=== PATIENT | male | born 1955 | race Caucasian/White ===

== ENCOUNTER 2016-05-15 06:51 | Inpatient (IN) | payer MEDICAID ==
[2016-05-14 10:18] LABS: % IMMATURE GRANULYOCYTES 0.2 % (0.0-1.1); ABSOLUTE IMMATURE GRANULOCYTES 0.01 10^3/uL (0.00-0.10); ADD DIFF? NO; ADD MORPH? NO; ADD SCAN? NO; ATYPICAL LYMPHOCYTE FLAG 20 (0-99); FRAGMENT RBC FLAG 0 (0-99); HEMATOCRIT 41.3 % (40.0-51.0); HEMOGLOBIN 13.8 g/dL (13.7-17.5); LEFT SHIFT FLG 0 (0-99); LIPEMIA HEMOLYSIS FLAG 80 (0-99); MEAN CELL HEMOGLOBIN 31.4 pg (27.9-34.1); MEAN CELL HEMOGLOBIN CONCENTR. 33.4 g/dL (32.4-36.7); MEAN CELL VOLUME 93.9 fL (81.5-99.8); MEAN PLATELET VOLUME 10.2 fL (8.7-11.7); PLATELET CLUMPS FLAG 0 (0-99); PLATELET COUNT 204 10^3/uL (150-400); RED CELL DISTRIBUTION WIDTH 14.2 % (11.5-15.2)
[2016-05-14 10:30] LABS: PROTIME(PATIENT) 13.1 SEC (12.0-15.0)
[2016-05-14 10:31] LABS: APTT 30.2 SEC (23.0-38.0)
[2016-05-14 10:59] LABS: HEMOGLOBIN A1C 5.5 % (4.0-6.0)
--- NOTE | 2016-05-14 17:45 | DX ---
PA and Lateral Chest May 14, 2016 Clinical Indications: Preoperative evaluation in a 61-year-old male. Comparison: Comparison is made to cardiac MRI study of April 17, 2016. Findings: There is stable prominent elevation of the left hemidiaphragm. Surgical clips are seen pr ojecting over the upper mediastinum and superior aspect of the heart anteriorly. The heart is displa jadon towards the left and may be mildly enlarged. Pulmonary vascularity is normal. Minimal scarring or atelectasis is seen at the left lung base. There is a suture line along the inferior aspect of th e left lung. IMPRESSION: Postoperative changes on the left, with associated elevation of the left hemidiaphragm, with no acute cardiopulmonary abnormality identified. Specifically, no radiographic contraindication to surgery is appreciated.
[~2016-05-15 06:51] MED LIST: ADENOSINE 6 MG/2 ML VIAL ONE; ALBUMIN 5% 250 ML BOTTLE IV ONE; AMINOCAPROIC ACID 5 GM/20 ML VIAL ONE; AMIODARONE HCL 150 MG/3 ML VIAL ONE; CALCIUM CHLORIDE 1 GM/10 ML INJ ONE; DOPamine/DEXTROSE/250 ML BAG IV ONE; HEPARIN 10,000 UNIT/10 ML MDV ONE; LIDOCAINE 2% 100 MG/5 ML SYR IVP ONE; MAGNESIUM SULFATE 1 GM/2 ML VIAL ONE; MILRINONE/DEXTROSE/100 ML BAG IV ONE; NA BICARBONATE 50 MEQ/50 ML VIAL ONE; POTASSIUM Cl (KCl) 20 MEQ/50 ML BAG IV ONE; PROTAMINE SULFATE 50 MG/5 ML VIAL IVP ONE; ceFAZolin 1 GM VIAL ONE; ceFAZolin 2 GM in D5W 100 ML IV ONE; methylPREDNISolone SOD SUCC 1 GM/8 ML VIAL ONE; niCARdipine/NACL/200 ML BAG IV ONE
[2016-05-15] MEDS ORDERED: NOREPINEPHRINE BITARTRATE 16 MG in NS 250 ML IV ONE (07:00)
[2016-05-15] MEDS ORDERED: AMINOCAPROIC ACID 5 GM/20 ML VIAL IV ONE (07:00)
[2016-05-15] MEDS ORDERED: SODIUM BICARBONATE 20 MEQ, LIDOCAINE 1% 10 ML in NORMOSOL-R 1,000 ML MISC ONE (07:00)
[2016-05-15] MEDS ORDERED: NS 1,000 ML IV ONE (07:00)
[2016-05-15] MEDS ORDERED: MANNITOL 25% 12.5 GM/50 ML VIAL IV ONE (07:00)
[2016-05-15] MEDS ORDERED: INSULIN REGULAR HUMAN 100 UNIT in NS 100 ML IV ONE (07:00)
[2016-05-15] MEDS ORDERED: PHENYLEPHRINE HCL 50 MG in NS 250 ML IV ONE (07:00)
[2016-05-15] MEDS ORDERED: CITRATE DEXTROSE SOLN 500 ML BAG MISC ONE (07:00)
[2016-05-15] MEDS ORDERED: ceFAZolin 2 GM/DEXTROSE 100 ML IV ONE (07:00)
[2016-05-15] MEDS ORDERED: VERAPAMIL 5 MG, NITROGLYCERIN 2.5 MG, HEPARIN 500 UNIT, SODIUM BICARBONATE 0.2 MEQ in L... MISC ONE (07:00)
[2016-05-15] MEDS ORDERED: LIDOCAINE 1% 5 ML SDV ID PRN ×2 (07:00→08:05)
[2016-05-15] MEDS ORDERED: LIDOCAINE 1% 5 ML SDV ONE (07:20)
--- NOTE | 2016-05-15 07:44 | PDGENHP ---
History and Physical - Chief Complaint /MR/CAD - History of Present Illness 61M with known , MR, CAD here for elective AVR/MVR/CABG. Pt states his health hasn't changed since his last visit at [facility] on 05/06/16. History Information - Allergies/Home Medication List Allergies/Adverse Reactions: No Known Allergies Allergy (Verified 05/13/16 13:44) Home Medications: Ascorbic Acid [Vitamin C 500 mg (*)] 500 mg PO DAILY 02/05/16 [Last Taken 08:00] Glucosamine HCl/Chondr Rudd A Na [Glucosamine-Chondroitin Tablet] 3 tab PO DAILY 02/05/16 [Last Taken 03/03/16 08:00] Multivitamins [Multivitamin (*)] 1 each PO DAILY 02/05/16 [Last Taken 03/03/16 08:00] Sumatriptan Succinate [Imitrex] 100 mg PO PRN PRN 02/05/16 [Last Taken Unknown] Venlafaxine Xr [Effexor Xr] 150 mg PO DAILY 02/05/16 [Last Taken 03/03/16 08:00] traZODone [traZODone 150MG (*)] 150 mg PO HS 02/05/16 [Last Taken 03/03/16 21:00 ] [place]-3 Fatty Acids [Fish Oil 1000 mg (*)] 1,000 mg PO DAILY 03/04/16 [Last Taken 03/03/16 08:00] Herbals/Supplements -Info Only 1 ea PO DAILY 05/14/16 [Last Taken Unknown] Past Medical History: , MR, Left neck pain, sleep apnea, depression, headaches - Past Medical History coronary artery disease, CHF, hypertension, hyperlipidemia, myocardial infarction - Social History Smoking Status: Never smoked Lab Data & Imaging Review 05/14/16 09:22 WBC 4.09 10^3/uL (3.80-9.50) 05/14/16 09:22 RBC 4.40 10^6/uL (4.40-6.38) 05/14/16 09:22 Hgb 13.8 g/dL (13.7-17.5) 05/14/16 09:22 Hct 41.3 % (40.0-51.0) 05/14/16 09:22 MCV 93.9 fL (81.5-99.8) 05/14/16 09: MCH 31.4 pg (27.9-34.1) 05/14/16 09: MCHC 33.4 g/dL (32.4-36.7) 05/14/16 09: RDW 14.2 % (11.5-15.2) 05/14/16 09:22 Plt Count 204 10^3/uL (150-400) 05/14/16 09: MPV 10.2 fL (8.7-11.7) 05/14/16 09:22 Neut % (Auto) 65.8 % (39.3-74.2) 05/14/16: Lymph % (Auto) 19.8 % (15.0-45.0) 05/14/16: [place] % (Auto) 10.5 % (4.5-13.0) 05/14/16 09: Eos % (Auto) 2.7 % (0.6-7.6) 05/14/16: Baso % (Auto) 1.0 % (0.3-1.7) 05/14/16 09: Nucleat RBC Rel Count 0.0 % (0.0-0.2) 05/14/16 09: Absolute Neuts (auto) 2.69 10^3/uL (1.70-6.50) 05/14/16 09:22 Absolute Lymphs (auto) 0.81 10^3/uL (1.00-3.00) L 05/14/16 09:22 Absolute Monos (auto) 0.43 10^3/uL (0.30-0.80) 05/14/16 09:22 Absolute Eos (auto) 0.11 10^3/uL (0.03-0.40) 05/14/16: Absolute Basos (auto) 0.04 10^3/uL (0.02-0.10) 05/14/16: Absolute Nucleated RBC 0.00 10^3/uL (0-0.01) 05/14/16 09: Immature Gran % 0.2 % (0.0-1.1) 05/14/16 09: Immature Gran # 0.01 10^3/uL (0.00-0.10) 05/14/16 09:22 PT 13.1 SEC (12.0-15.0) 05/14/16 09:22 INR 1.00 (0.83-1.16) 05/14/16 09:22 APTT 30.2 SEC (23.0-38.0) 05/14/16 09:22 Hemoglobin A1c 5.5 % (4.0-6.0) 05/14/16 09:23 Estim Average Glucose 111 mg/dL (68-126) 05/14/16 09:23 Patient ABO/Rh O NEGATIVE 05/14/16 09:22 Antibody Screen NEGATIVE 05/14/16 09:22 Assessment & Plan Assessment: Aortic stenosis with mitral and aortic insufficiency (Chronic) CAD in [place] artery (Chronic) Chronic combined systolic and diastolic CHF, NYHA class 2 (Chronic) Chronically elevated hemidiaphragm (Chronic) Nonischemic cardiomyopathy (Chronic)
[2016-05-15] MEDS ORDERED: MIDAZOLAM 2 MG/2 ML VIAL ONE ×4 (08:05→08:10)
[2016-05-15] MEDS ORDERED: LR 1,000 ML IV ONE (08:05)
[2016-05-15] MEDS ORDERED: REMIFENTANIL HCL 1 MG VIAL ONE (08:10)
[2016-05-15] MEDS ORDERED: fentaNYL 250 MCG/5 ML INJ ONE ×2 (08:10→11:40)
[2016-05-15] MEDS ORDERED: CITRATE DEXTROSE SOLN 500 ML BAG ONE (08:11)
[2016-05-15] MEDS ORDERED: DEXAMETHASONE 4 MG/ML VIAL ONE ×2 (08:11)
[2016-05-15] MEDS ORDERED: ROCURONIUM 100 MG/10 ML VIAL ONE (08:11)
[2016-05-15] MEDS ORDERED: ROCURONIUM 50 MG/5 ML VIAL ONE (08:11)
[2016-05-15] MEDS ORDERED: epHEDrine SULFATE 10 MG/ML SYR ONE ×3 (08:11→09:07)
[2016-05-15] MEDS ORDERED: PROPOFOL/EMULSION 500 MG/50 ML BOTTLE IV ONE ×2 (08:11→11:39)
[2016-05-15] MEDS ORDERED: PHENYLEPHRINE HCL 100 MCG/ML SYR ONE (08:11)
[2016-05-15] MEDS ORDERED: ONDANSETRON 4 MG/2 ML VIAL ONE (08:12)
[2016-05-15] MEDS ORDERED: LIDOCAINE 2% 100 MG/5 ML SYR IVP ONE (08:12)
[2016-05-15] MEDS ORDERED: SKIN ADHESIVE (DERMABOND) 1 EACH TP ONE (08:13)
[2016-05-15] MEDS ORDERED: VERAPAMIL 5 MG/2 ML VIAL ONE (08:13)
[2016-05-15] MEDS ORDERED: PAPAVERINE HCL 60 MG/2 ML SDV ONE (08:14)
[2016-05-15] MEDS ORDERED: LIDOCAINE HCL 160 MG/4 ML LTA KIT TP ONE (08:17)
[2016-05-15] MEDS ORDERED: GLYCOPYRROLATE 0.2 MG/1 ML VIAL ONE (09:06)
[2016-05-15] MEDS ORDERED: MILRINONE/DEXTROSE/100 ML BAG IV ONE (10:18)
[2016-05-15] MEDS ORDERED: LACTULOSE 20 GM/30 ML UDCUP PO PRN (12:38)
[2016-05-15] MEDS ORDERED: MAGNESIUM SULF 2 GM/WATER 50 ML IV ONE (12:38)
[2016-05-15] MEDS ORDERED: ACETAMINOPHEN 325 MG TAB PO PRN (12:38)
[2016-05-15] MEDS ORDERED: MAGNESIUM HYDROXIDE 30 ML UDCUP PO PRN (12:38)
[2016-05-15] MEDS ORDERED: PANTOPRAZOLE SODIUM 40 MG in NS 100 ML IV ONE (12:38)
[2016-05-15] MEDS ORDERED: BISACODYL 10 MG SUPP PR PRN (12:38)
[2016-05-15] MEDS ORDERED: D50W 25 GM/50 ML SYR IVP PRN (12:38)
[2016-05-15] MEDS ORDERED: ACETAMINOPHEN 650 MG SUPP PR PRN (12:38)
[2016-05-15] MEDS ORDERED: HYDROCODONE/APAP 5/325 TAB PO PRN (12:38)
[2016-05-15] MEDS ORDERED: METOCLOPRAMIDE 10 MG/2 ML VIAL IVP PRN (12:38)
[2016-05-15] MEDS ORDERED: ONDANSETRON DISINTEGRATING 4 MG TAB PO PRN (12:38)
[2016-05-15] MEDS ORDERED: ONDANSETRON 4 MG/2 ML VIAL IVP PRN (12:38)
[2016-05-15] MEDS ORDERED: SODIUM CL NASAL 45 ML BTL EACHNARE PRN (12:38)
[2016-05-15] MEDS ORDERED: CEPACOL LOZENGE PO PRN (12:38)
[2016-05-15] MEDS ORDERED: POLYETHYLENE GLYCOL 3350 17 GM PKT PO PRN (12:38)
[2016-05-15] MEDS ORDERED: MEPERIDINE 25 MG/ML SYR IVP PRN (12:38)
[2016-05-15] MEDS ORDERED: ALBUMIN 5% 250 ML IV PRN (12:38)
[2016-05-15] MEDS ORDERED: NS 1,000 ML IV SCH (12:45)
[2016-05-15] MEDS ORDERED: INSULIN REGULAR HUMAN 100 UNIT in NS 100 ML IV SCH (13:00)
[2016-05-15] MEDS ORDERED: MAGNESIUM SULF 2 GM/WATER 50 ML BAG IV ONE (13:03)
--- NOTE | 2016-05-15 13:09 | POSTOPPROG ---
Post Op Note Date of Operation: 05/15/16 Surgeon: Jan Malloy Deli Bakery Clerk: Fei Velázquez Anesthesiologist: Juan Anesthesia: GET(General Endotracheal) Pre-op Diagnosis: AI, MR, ASHD restrictive myopathy Procedure: AVR #21 Magna, MVR #25 Magna, reoperation, LCFA?V long w repair Inf/Abcess present in the surg proc area at time of surgery?: No EBL: 100-500 Drains: Other (2 blakes)
[2016-05-15 13:57] LABS: BASE EXCESS -7.7 mEq/L (-2.5-2.5); BICARBONATE 19 mEq/L (22-26); MEASURED OXYGEN SATURATION 99 % (92-95); PCO2 38 mmHg (34-38); PO2 217 mmHg (65-75); TCO2 20 mEq/L (23-27)
[2016-05-15 13:59] LABS: O2 CONCENTRATIION 100 % (0-100); P/F RATIO 217 RATIO; PRESSURE SUPPORT 7; SIMV YES
[2016-05-15] MEDS ORDERED: ceFAZolin 2 GM/DEXTROSE 100 ML IV SCH (14:00)
[2016-05-15] MEDS ORDERED: NA BICARBONATE 50 MEQ/50 ML VIAL ONE (14:09)
--- NOTE | 2016-05-15 14:15 | CPEKG ---
Heart Rate: 94 RR Interval: 638 P-R Interval: 176 QRSD Interval: 106 QT Interval: 388 QTC Interval: 486 P [place]: 73 QRS [place]: -37 T Wave [place]: 121 EKG Severity - ABNORMAL ECG - EKG Impression: SINUS RHYTHM EKG Impression: LVH WITH SECONDARY REPOLARIZATION ABNORMALITY EKG Impression: BORDERLINE PROLONGED QT INTERVAL Electronically Signed By: Rohit Hodges 15-May-2016 19:29:28
[2016-05-15] MEDS: POTASSIUM Cl (KCl) 50 ML IV PRN ×4 (14:38→16:51)
[2016-05-15] MEDS: fentaNYL 100 MCG/2 ML INJ IVP PRN (14:40)
[2016-05-15] MEDS: MUPIROCIN 2% 22 GM OINT NS SCH ×2 (14:44→20:40)
[2016-05-15] MEDS ORDERED: NA BICARBONATE 50 MEQ/50 ML VIAL IV ONE ×3 (15:00→17:30)
[2016-05-15] MEDS: CHLORHEXIDINE GLUCONATE 15 ML UDL PO SCH ×2 (15:00→20:34)
[2016-05-15 15:07] LABS: BASE EXCESS -7.6 mEq/L (-2.5-2.5); BICARBONATE 19 mEq/L (22-26); MEASURED OXYGEN SATURATION 97 % (92-95); PCO2 44 mmHg (34-38); PO2 96 mmHg (65-75); TCO2 21 mEq/L (23-27)
[2016-05-15 15:08] LABS: SIMV YES
[2016-05-15 15:09] LABS: O2 CONCENTRATIION 40 % (0-100); P/F RATIO 240 RATIO; PRESSURE SUPPORT 7
[2016-05-15 15:26] LABS: HEMATOCRIT 29.4 % (40.0-51.0)
[2016-05-15] MEDS: ceFAZolin 2 GM in D5W 100 ML IV SCH ×2 (15:38→21:16)
--- NOTE | 2016-05-15 16:18 | GOP ---
[f rep st] OPERATIVE REPORT DATE OF OPERATION: 05/15/2016 SURGEON: Jan Malloy DO INDUSTRIAL TRUCK DRIVER: 1. Low Velázquez PA-C, who 1st-assisted throughout the procedure. 2. Blossom Enamorado PA-C. ANESTHESIA: Guicho Martinez M.D. PREOPERATIVE DIAGNOSIS: 1. 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 2. Arteriosclerotic heart disease, status post total occlusion of the left anterior descending with apical infarct. 3. Cardiomyopathy, multifactorial. POSTOPERATIVE DIAGNOSIS: 1. 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 2. Arteriosclerotic heart disease, status post total occlusion of the left anterior descending with apical infarct. 3. Cardiomyopathy, multifactorial. PROCEDURE PERFORMED: 1. Aortic valve replacement with a #21 Magna bioprosthesis. 2. Mitral valve replacement, with a #25 Magna bioprosthesis. 3. Left common femoral artery and vein cannulation with primary repair. FINDINGS: This gentleman presented with worsening class III/IV congestive heart failure symptoms with a dilated cardiomyopathy of multifactorial origin, includin. Previous anterior wall infarction with anterior wall and apical thinning, as well as. 2. 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 3. 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 DESCRIPTION OF PROCEDURE: He was consented for high-risk surgery after extensive evaluation suggested he still had viable myocardium and adequate function to survive the surgery. He was offered VAD and biventricular assist post-pump, if necessary, with the potential for transplant, which he refused. He was consented for surgery, brought to the operating room, intubated, and monitoring lines were placed by Anesthesia. He was prepped and draped in sterile classical manner. A transesophageal echo confirmed preoperative findings with an ejection fraction of approximately 35%. 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 Pursestring sutures were placed in anticipation of potential need for urgent bypass institution. Oscillating saw was performed down to the posterior sternal plate, with retraction on the sternum in order to avoid any cardiac injury. It was quite fibrosed and scarred in. We then were gently retracting the sternal edges in order to place a retractor when he became bradycardic and hypotensive. The pericardium or mediastinal structures were quite tense and fibrosed. Initially, I planned to partially open the pericardium in order to place pacing wires in order to allow us to safely dissect them out; however, he remained unstable, and there was actually blood in the pericardium. I then attempted to open it and realized that we were in the right atrium from a tear, probably due to attempting to retract the sternum. That was occluded with digital pressure, while the left common femoral artery was cannulated with arterial venous cannulas after heparinization. He remained hemodynamically stable throughout this procedure. We then initiated cardiopulmonary bypass with a 25-[place] venous and a 19- [place] cannula. Again, under a totally controlled situation, we then were able to isolate the tear in the right atrium and close that with 4-0 Prolene. We then continued cooling the patient. We exposed the aorta and the right side of the heart. We never entered either pleura. Aortic crossclamp was applied, and initially retrograde cardioplegia was administered. We then opened the aorta for an aortic valve and I administered direct right coronary artery cardioplegia intermittently throughout the procedure. The left side of the heart was never truly exposed. We had placed a retrograde catheter in the coronary sinus. We then exposed the mitral valve through very friable and fibrotic tissue. The atrium was very, very friable and small. We exposed the mitral valve gently, avoiding tearing any cardiac structures and found that the mitral valve almost appeared rheumatic, although it was classic radiation changes. There was no subvalvular involvement. The leaflets were thickened and markedly retracted. I did not feel it warranted replacement. We then did a chordal-sparing mitral valve replacement, preserving the anterior leaflet, dividing it in 2 and putting it at 3 and 9 o'clock, incorporating it into the valve replacement with a 24 Magna bioprosthesis. The left atrium was then closed, again with very friable tissue. The patient has a history of a small PFO, which was very difficult to expose because of the nature of the heart being stuck anteriorly; therefore, I aborted any attempt to try to close that, realizing that it was not hemodynamically significant. Rewarming was begun while the aortic valve was excised. It was a trileaflet, calcified, retracted valve, similar to the mitral valve. It was excised. Heavy calcification along the mitral annulus and noncoronary sinus curtain was debrided down onto the anterior leaflet of what had been the remainder of the mitral valve. It was copiously irrigated with saline and CO2 was infused. We then placed a 21 mm Magna valve in a supra-annular position with interrupted 2-0 Tycron pledget and mattress sutures, reinforcing the heavily calcified area at the junction of the aortic and mitral valves with felt, from outside the aorta through the annulus of the valve to prevent any sort or perivalvular leak or dehiscence there. It was quite solid and without concern. We then closed the aorta in a standard 2-layer fashion. Crossclamp was removed with suction on the ascending aortic vent, with the patient in deep Trendelenburg. We then spent some time deairing him. When no further air was identified, he was easily weaned from bypass with epinephrine and Primacor. Normal sinus rhythm was restored, although 4 pacing wires were placed. Two mediastinal tubes were placed. There was no pericardium to close, due to the previous resection and this all retracted. I then placed 2 mediastinal drains, closed the sternum in the standard fashion. The cannulas were removed from LCFA/V with primary repair. Doppler confirmed patency in PT and DP on left. Transesophageal echo revealed an ejection fraction of about 40% to 45% on epinephrine, no air and no perivalvular leak, with good valvular function. The sternum was closed in standard fashion. The patient was returned to ICU in critical condition. /[id number]/MODL MTDD
--- NOTE | 2016-05-15 16:28 | GCON ---
[f rep st] CONSULTATION CRITICAL CARE CONSULT DATE OF CONSULTATION: 05/15/2016 HISTORY OF PRESENT ILLNESS: The patient is a 61-year-old male with a history of remote non-Hodgkin l ymphoma that was treated, at least in part, with radiation therapy and mediastinal tumor removal in t he distant past. He subsequently developed aortic regurgitation, aortic stenosis, as well as mitral regurgitation that was causing increasing dyspnea. He underwent aortic valve and mitral valve repair today by Dr. Malloy. The surgery itself, I believe, had at least temporary tamponade, the details of which I am not certain of, but this was repaired, and he has done substantially better. He came to the ICU on a ventilator on low-dose epinephrine to maintain his blood pressure, and minimal ventilato r support. PAST MEDICAL HISTORY: 1. Includes non-Hodgkin lymphoma, described above. 2. Aortic regurgitation, aortic stenosis, mitral regurgitation, and cardiomyopathy, but an ejection fraction of 45%. 3. He also has benign prostatic hypertrophy. 4. History of cluster headaches. 5. Depression and anxiety. 6. Sleep apnea. PAST SURGICAL HISTORY: 1. Today's valve repairs. 2. Bilateral total hip arthroplasty in the past. 3. Mediastinal tumor removal in 1989. SOCIAL HISTORY: He is a nonsmoker. No alcohol or IV drug use. FAMILY HISTORY: Coronary artery disease. CURRENT MEDICATIONS: Include vitamin C, aspirin, cefazolin, Pepcid, fentanyl, insulin, Demerol p.r.n ., morphine p.r.n., Zofran, Protonix, bicarbonate, Effexor. PHYSICAL EXAMINATION: VITAL SIGNS: He was afebrile, and his blood pressure . GENERAL: Colleen acosta was reasonably well sedated, in no apparent distress, on the ventilator. He was not using accessor y muscles of breathing. HEENT: Pupils equally round, reactive to light, nonicteric, noninjected. N MOJGAN: Appeared supple without adenopathy or jugular venous distention. LUNGS: Breath sounds were mi ldly coarse bilaterally, but had good air exchange, and oxygen saturation was 100%. His incision was clean and dry without evidence of bleeding or leakage. His mediastinal tubes were in place and also looked to be quite adequate. ABDOMEN: Soft and nondistended with hypoactive bowel sounds. EXTREMI TIES: Warm with no clubbing, cyanosis or obvious edema. NEUROLOGIC: Cursory neurological exam was nonfocal. ASSESSMENT AND PLAN: 1. Status post mitral valve and aortic valve replacement. He appears to be doing fairly well in the postoperative period. He is relatively stable. CT Surgery is managing the hemodynamics. At this p oint, he seems to be fairly stable. His tubes are in a good position. 2. Respiratory failure. He is on a ventilator protocol. I expect he should be extubated fairly jesse n without additional interventions. 3. Sleep apnea, which is a nonissue as long as he is on the ventilator. I would use his home device as soon as he is extubated, as needed, and certainly every night. 4. Cluster headaches. We will see how he does postoperatively, whether we need to address this prob lidia more directly. /[id number]/MODL
[2016-05-15 17:09] LABS: BASE EXCESS -8.3 mEq/L (-2.5-2.5); BICARBONATE 18 mEq/L (22-26); MEASURED OXYGEN SATURATION 99 % (92-95); PCO2 39 mmHg (34-38); PO2 122 mmHg (65-75); TCO2 19 mEq/L (23-27)
[2016-05-15 17:10] LABS: CPAP YES; O2 CONCENTRATIION 40 % (0-100); P/F RATIO 305 RATIO
[2016-05-15] MEDS ORDERED: ALBUMIN 5% 250 ML IV ONE (17:30)
--- NOTE | 2016-05-15 18:35 | DX ---
Portable Chest May 15, 2016 at 1742 hours History: Postop open heart surgery, with multiple tubes and lines. Comparison: Yesterday. Findings: Elevated left hemidiaphragm. Mild cardiomegaly. Median sternotomy wires, mediastinal cli ps, aortic valve replacement, and mitral valve replacement. Right internal jugular line in the right atrium. Right internal jugular [place]-Nicolas catheter in the right pulmonary artery. Left lower lobe a telectasis. Poor inspiratory phase, with mild pulmonary venous hypertension. No pneumothorax. Dist ention of the stomach with gas. Impression: Multiple tubes and lines, without pneumothorax.
[2016-05-15 19:33] LABS: BASE EXCESS -1.4 mEq/L (-2.5-2.5); BICARBONATE 24 mEq/L (22-26); MEASURED OXYGEN SATURATION 94 % (92-95); PCO2 46 mmHg (34-38); PO2 74 mmHg (65-75); TCO2 25 mEq/L (23-27)
[2016-05-15] MEDS: FAMOTIDINE 20 MG/NACL 50 ML IV SCH (20:33)
[2016-05-15] MEDS ORDERED: KETOROLAC 30 MG/1 ML SDV IVP ONE (21:30)
[2016-05-15 22:14] LABS: HEMATOCRIT 28.9 % (40.0-51.0); HEMOGLOBIN 9.8 g/dL (13.7-17.5); MEAN CELL HEMOGLOBIN 31.5 pg (27.9-34.1); MEAN CELL HEMOGLOBIN CONCENTR. 33.9 g/dL (32.4-36.7); MEAN CELL VOLUME 92.9 fL (81.5-99.8); RED BLOOD CELL COUNT 3.11 10^6/uL (4.40-6.38); RED CELL DISTRIBUTION WIDTH 14.6 % (11.5-15.2)
[2016-05-15] MEDS: niCARdipine/NACL 200 ML IV SCH (22:30)
[2016-05-15] MEDS ORDERED: niCARdipine/NACL/200 ML BAG IV ONE (22:30)
[2016-05-16] MEDS: niCARdipine/NACL 200 ML IV SCH (01:38)
[2016-05-16] MEDS: KETOROLAC 15 MG/1 ML SDV IVP SCH ×4 (02:13→20:14)
[2016-05-16] MEDS: fentaNYL 100 MCG/2 ML INJ IVP PRN (03:43)
[2016-05-16 05:45] LABS: % IMMATURE GRANULYOCYTES 0.3 % (0.0-1.1); ABSOLUTE IMMATURE GRANULOCYTES 0.05 10^3/uL (0.00-0.10); ADD DIFF? NO; ADD MORPH? NO; ADD SCAN? NO; ATYPICAL LYMPHOCYTE FLAG 0 (0-99); FRAGMENT RBC FLAG 0 (0-99); HEMATOCRIT 29.1 % (40.0-51.0); LEFT SHIFT FLG 40 (0-99); LIPEMIA HEMOLYSIS FLAG 90 (0-99); MEAN CELL HEMOGLOBIN 32.1 pg (27.9-34.1); MEAN CELL HEMOGLOBIN CONCENTR. 34.4 g/dL (32.4-36.7); MEAN CELL VOLUME 93.3 fL (81.5-99.8); MEAN PLATELET VOLUME 10.7 fL (8.7-11.7); PLATELET CLUMPS FLAG 0 (0-99); PLATELET COUNT 82 10^3/uL (150-400); RED BLOOD CELL COUNT 3.12 10^6/uL (4.40-6.38); RED CELL DISTRIBUTION WIDTH 14.9 % (11.5-15.2)
[2016-05-16 05:59] LABS: ANION GAP -1 mEq/L (8-16); CALCIUM 8.4 mg/dL (8.5-10.4); CARBON DIOXIDE 31 mEq/l (22-31); CHLORIDE 113 mEq/L (97-110); CREATININE 0.9 mg/dL (0.7-1.3); GLOMERULAR FILTRATION RATE > 60; GLUCOSE 110 mg/dL (70-100); POTASSIUM 5.6 mEq/L (3.5-5.2); SODIUM 143 mEq/L (134-144)
[2016-05-16 06:00] LABS: INR 1.32 (0.83-1.16); PROTIME(PATIENT) 16.4 SEC (12.0-15.0)
[2016-05-16] MEDS ORDERED: HEPARIN 5,000 UNIT/0.5 ML SYR SC SCH (06:00)
[2016-05-16] MEDS: ceFAZolin 2 GM in D5W 100 ML IV SCH (06:16)
--- NOTE | 2016-05-16 06:53 | SOAPPROG ---
SOAP Progress Note Assessment/Plan: POD#1: AVR #21 Magna bioprosthesis, MVR with #25 Magna bioprosthesis, left femoral artery/vein cannulation with primary repair Severe AI/MR s/p AVR/MVR with need for femoral cannulation secondary to right atrium tear when entering the chest - Wean Cardene as tolerated for MAPs 65 - Continue AP at 80 for intrinsic bradycardia - AL/FC out/CTs to bulb suction - OOB to chair/PT/OT - Will need thromboprophylaxis for MVR Left-sided fasciculations/tremor/confusion r/o CVA, ?ETOH withdrawal - Neurology consult - Avoid narcotics, Beer with meals - Hold thromboprophylaxis for MVR pending CT Head CAD with chronically occluded LAD and apical ICM - ASA, consider starting statin CHF, stage III-IV with EF 35% - BB/Diuretics/ACEi as tolerated Depression/Anxiety - Re-start PO meds (Wellbutrin/Trazodone) Migraine CLAUDIO - Imitrex prn 05/16/16 08:45 Subjective: Comfortable but admits to feeling anxious. Objective: Vital Signs Temp Pulse Resp BP Pulse Ox 37 C 80 20 120/4 L 96 05/16/16 06:00 05/16/16 06:00 05/16/16 06:00 05/16/16 06:00 05/16/16 06:00 Laboratory Results 05/16/16 05:30 05/16/16 05:30 05/15/16 05/16/16 05/17/16 05:59 05:59 05:59 Intake Total 976 Output Total 2605 Balance -1629 PT 16.4 SEC (12.0-15.0) H 05/16/16 05:30 INR 1.32 (0.83-1.16) H 05/16/16 05:30 Physical Exam - Physical Exam General Appearance: alert, no apparent distress EENT: No scleral icterus (R), No scleral icterus (L) Neck: normal inspection Respiratory: lungs clear, normal breath sounds, No respiratory distress Cardiac/Chest: normal peripheral pulses, bradycardia Peripheral Pulses: 2+: dorsalis-pedis (R), dorsalis-pedis (L) Abdomen: non-tender, soft, No distended Skin: normal color, warm/dry Extremities: No pedal edema, No swelling Neuro/Psych: alert, oriented x 3, disoriented to person, disoriented to place, disoriented to time, other (L sided tremor/muscle spasms ), No aphasia, No EOM palsy, No facial droop, No motor weakness, No sensory deficit ICD10 Worksheet Patient Problems: Problems Problem Status Diagnosed S/P aortic valve replacement with bioprosthetic valve Acute S/P mitral valve replacement with bioprosthetic valve Acute Aortic stenosis with mitral and aortic insufficiency Chronic Chronic combined systolic and diastolic CHF, NYHA class 2 Chronic Chronically elevated hemidiaphragm Chronic Nonischemic cardiomyopathy Chronic CAD in [place] artery Chronic Patent foramen ovale Chronic
--- NOTE | 2016-05-16 08:16 | DX ---
Portable Chest, Single View May 16, 2016 5:07 a.m. Indication: Status post open heart surgery. Follow up effusion and atelectasis. Comparison: None. Findings: The right IJ [place]-Nicolas catheter with the tip in the right pulmonary artery, mediastinal ena in, right IJ central venous line with tip in the right atrium, and right chest tube are all unchanged . Asymmetric elevation of the left hemidiaphragm resulting in left basilar atelectasis is unchanged. Interstitial edema has resolved. Right lung is well aerated and clear. Mild cardiomegaly and configur ation of prosthetic heart valves unchanged. Impression: 1. Resolved interstitial edema. 2. Support devices in good position. 3. Chronically elevated left hemidiaphragm and minimal left basilar atelectasis are unchanged.
[2016-05-16] MEDS ORDERED: BEER 1 EACH EA PO ONE (08:30)
[2016-05-16] MEDS: MUPIROCIN 2% 22 GM OINT NS SCH ×2 (08:47→20:44)
[2016-05-16] MEDS: PANTOPRAZOLE SODIUM 40 MG TAB PO SCH (08:47)
[2016-05-16] MEDS: VENLAFAXINE XR 150 MG CAP PO SCH (08:47)
[2016-05-16] MEDS: CHLORHEXIDINE GLUCONATE 15 ML UDL PO SCH ×2 (08:47→20:15)
[2016-05-16] MEDS: ASPIRIN 81 MG CHEWABLE TAB PO SCH (08:47)
[2016-05-16] MEDS: FAMOTIDINE 20 MG/NACL 50 ML IV SCH ×2 (08:47→20:14)
[2016-05-16] MEDS ORDERED: ASPIRIN 81 MG CHEWABLE TAB TUBE PRN (09:00)
--- NOTE | 2016-05-16 12:21 | SOAPPROG ---
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 Started having CHF symptoms in 01/03. Tried on low dose Coreg and Lisinopril and felt like a zombie. Had CHF with LVEF 45%, significant AV and MV disease and 100% occluded LAD. Underwent sternotomy with BioAVR and BioMVR yesterday. Extubated and off IV vasopressors. H denies CP, rest shortness of breath or PND. He is confused and weak. On exam mildly hypervolemic with JVP to 9-10. RRR with 2/6 EUGENIA but no S3. REC: 1)lasix 40mg IV x 1 now. 2)AM BMP. If serum creatinine and Potassium okay, would start on Lisinopril 10mg po qday. 3)maybe start Beta james (Coreg 3.125mg PO BID) in two days watching for bradyarrhythmias. 4)follow neuro checks closely. 5)will see again Thursday and upon discharge enroll in [facility] CHF clinic. Thanks. 05/16/16 12:16 Subjective: Bentley feels confused and weak. Denies CP, PND, cough, edema or rest dyspnea. No headache or perceived weakness in extremities. Objective: Vital Signs Temp Pulse Resp BP Pulse Ox 36.8 C 80 18 113/57 L 96 05/16/16 08:00 05/16/16 10:00 05/16/16 10:00 05/16/16 10:00 05/16/16 10:00 Laboratory Results 05/16/16 05:30 05/15/16 05/16/16 05/17/16 05:59 05:59 05:59 Intake Total 976 Output Total 2605 Balance -1629 PT 16.4 SEC (12.0-15.0) H 05/16/16 05:30 INR 1.32 (0.83-1.16) H 05/16/16 05:30 Physical Exam - Physical Exam General Appearance: No mild distress EENT: PERRL/EOMI Neck: non-tender Respiratory: lungs clear Cardiac/Chest: regular rate, rhythm, systolic murmur, No gallop, No friction rub (2/6 EUGENIA heard) Peripheral Pulses: 2+: carotid (R), carotid (L), femoral (R), femoral (L), dorsalis-pedis (R), dorsalis-pedis (L) Abdomen: non-tender, soft, No ascites Skin: warm/dry Extremities: No pedal edema Neuro/Psych: alert (to person and place. ) ICD10 Worksheet Patient Problems: Problems Problem Status Diagnosed S/P aortic valve replacement with bioprosthetic valve Acute S/P mitral valve replacement with bioprosthetic valve Acute Aortic stenosis with mitral and aortic insufficiency Chronic Chronic combined systolic and diastolic CHF, NYHA class 2 Chronic Chronically elevated hemidiaphragm Chronic Nonischemic cardiomyopathy Chronic CAD in [place] artery Chronic Patent foramen ovale Chronic
[2016-05-16 13:00] LABS: POTASSIUM 4.7 mEq/L (3.5-5.2)
[2016-05-16] MEDS ORDERED: FUROSEMIDE 40 MG/4 ML VIAL IVP ONE (13:10)
--- NOTE | 2016-05-16 14:20 | PDINTPN ---
Cafeteria Cashier Progress Note Assessment/Plan: Assessment/plan: * s/p MVR and AVR 05/15 and tolerated well. BP stable, no bleeding, chest tube sites clean and dry. EF 20% * Tremor with confusion this AM. Neurology consult pending- etoh wd, effexor wd , shivering all possible. CVA less likely. Consider CT, EEG. * Respiratory failure with hypoxia- stable postop and extubated without difficulty. * KAMAR- will encourage patient to get his CPAP device to bedside. * DM- controlled on current regimen * discussed with Dr. Malloy Objective: Vital Signs Temp Pulse Resp BP Pulse Ox 36.8 C 80 18 113/57 L 96 05/16/16 08:00 05/16/16 10:00 05/16/16 10:00 05/16/16 10:00 05/16/16 10:00 Laboratory Results 05/16/16 05:30 05/16/16 11:26 05/15/16 05/16/16 05/17/16 05:59 05:59 05:59 Intake Total 976 Output Total 2605 Balance -1629 PT 16.4 SEC (12.0-15.0) H 05/16/16 05:30 INR 1.32 (0.83-1.16) H 05/16/16 05:30 Physical Exam - Physical Exam General Appearance: alert, no apparent distress, other (mild confusion) EENT: PERRL/EOMI, normal ENT inspection Neck: full range of motion, supple, normal inspection, No carotid bruit, No lymphadenopathy (R), No lymphadenopathy (L) Respiratory: lungs clear, normal breath sounds, No respiratory distress, No rales, No wheezing Cardiac/Chest: normal peripheral pulses, regular rate, rhythm, No edema Abdomen: normal bowel sounds, non-tender, soft Skin: normal color, warm/dry, No rash Lymphatic: no adenopathy Extremities: non-tender, No pedal edema Neuro/Psych: alert, normal mood/affect, oriented x 3 (mostly), other (tremor of UE and LE; L>R) ICD10 Worksheet Patient Problems: Problems Problem Status Diagnosed S/P aortic valve replacement with bioprosthetic valve Acute S/P mitral valve replacement with bioprosthetic valve Acute Aortic stenosis with mitral and aortic insufficiency Chronic Chronic combined systolic and diastolic CHF, NYHA class 2 Chronic Chronically elevated hemidiaphragm Chronic Nonischemic cardiomyopathy Chronic CAD in [place] artery Chronic Patent foramen ovale Chronic
[2016-05-16] MEDS ORDERED: FUROSEMIDE 40 MG/4 ML VIAL ONE (16:41)
[2016-05-16] MEDS: ceFAZolin 2 GM/DEXTROSE 100 ML IV SCH ×2 (16:45→21:16)
[2016-05-16] MEDS: GLUCOSAMINE/CHONDROITIN CAP PO SCH (16:46)
[2016-05-16] MEDS: BEER 1 EACH EA PO SCH ×2 (16:46→20:15)
--- NOTE | 2016-05-16 17:41 | GCON ---
[f rep st] CONSULTATION NEUROLOGY CONSULT REFERRING PHYSICIAN: Low Cherry MD CHIEF COMPLAINT: Tremors. 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 He had developed aortic regurgitation, aortic stenosis and mitral regurgitation that it was causing the shortness of breath. He had aortic valve and mitral valve repair on May [address] Malloy. Today, on postoperative day 1, he apparently had some tremors. These were low amplitude regular tremors in his extremities. Per Dr. Cherry, he observed tremors with asymmetry, maximal on the left. Per his nurse, the nurse observed the tremors to be bilateral without alteration of consciousness or seizure activity. With further history, or the day it came out, the patient may be a heavy alcohol user, and he had been on Effexor previously. The Effexor was restarted, and he was given beer with lunch and the tremor subsided. No other focal sensory, motor, visual or language deficits. REVIEW OF SYSTEMS: A 10-point review of systems was performed and only pertinent to the HPI. For past medical history, social history, family history, allergies, and home medications, please refer to the admitting history and physical and consultation notes. PHYSICAL EXAMINATION: VITAL SIGNS: Blood pressure 113/57, pulse 80, respirations are 18, O2 sats 96%. Afebrile. GENERAL: No distress. Very pleasant gentleman. HIGHER MENTAL FUNCTION: He is awake and alert. He is lucid. No aphasia. Cranial nerve exam is normal 2 through 7, and cranial nerve 12. Motor exam: No focal weakness. No pronator drift. Normal reflexes throughout. Sensory exam: Normal to light touch in all 4 extremities. Coordination: He had no ataxia. He did have very mild asterixis in his upper extremities. IMPRESSION/PLAN: 1. Postoperative day 1 from cardiac valve surgery. 2. Tremors, resolved. 3. Query heavy alcohol use. The patient's tremors have resolved and may have been related to a multifactorial metabolic / toxic encephalopathy. He does have some very mild asterixis on exam, consistent with some mild metabolic encephalopathy, which is not uncommon in this postoperative setting. His liver function tests were checked and normal on May 12, 2016. He has no jaundice on exam. I understand the ICU team will be obtaining a head CT without contrast to exclude any hemorrhage before restarting antithrombotics. Certainly, that is reasonable. I have no further recommendations from a neurologic standpoint. We will sign off and continue to follow as needed. Please do not hesitate to call with any questions or if he has any further neurologic symptoms. Thank you for this consultation. /[id number]/MODL MTDD
[2016-05-16] MEDS ORDERED: LIDOCAINE 2% JELLY 20 ML (UROJECT) ONE (20:12)
[2016-05-16] MEDS: SENNOSIDES/DOCUSATE SODIUM TAB PO SCH (20:44)
[2016-05-17] MEDS: KETOROLAC 15 MG/1 ML SDV IVP SCH ×2 (04:03→16:17)
[2016-05-17 05:35] LABS: % IMMATURE GRANULYOCYTES 0.6 % (0.0-1.1); ABSOLUTE IMMATURE GRANULOCYTES 0.05 10^3/uL (0.00-0.10); ADD DIFF? NO; ADD MORPH? NO; ADD SCAN? NO; ATYPICAL LYMPHOCYTE FLAG 0 (0-99); FRAGMENT RBC FLAG 0 (0-99); HEMATOCRIT 22.1 % (40.0-51.0); HEMOGLOBIN 7.3 g/dL (13.7-17.5); LEFT SHIFT FLG 50 (0-99); LIPEMIA HEMOLYSIS FLAG 80 (0-99); MEAN CELL HEMOGLOBIN 31.9 pg (27.9-34.1); MEAN CELL VOLUME 96.5 fL (81.5-99.8); MEAN PLATELET VOLUME 11.2 fL (8.7-11.7); PLATELET CLUMPS FLAG 10 (0-99); PLATELET COUNT 55 10^3/uL (150-400); RED BLOOD CELL COUNT 2.29 10^6/uL (4.40-6.38)
[2016-05-17 05:48] LABS: ANION GAP 3 mEq/L (8-16); CALCIUM 7.8 mg/dL (8.5-10.4); CARBON DIOXIDE 33 mEq/l (22-31); CHLORIDE 105 mEq/L (97-110); GLOMERULAR FILTRATION RATE > 60; GLUCOSE 109 mg/dL (70-100); MAGNESIUM 2.6 mg/dL (1.6-2.3); POTASSIUM 4.3 mEq/L (3.5-5.2); SODIUM 141 mEq/L (134-144)
[2016-05-17 05:54] LABS: INR 1.42 (0.83-1.16); PROTIME(PATIENT) 17.3 SEC (12.0-15.0)
--- NOTE | 2016-05-17 08:44 | DX ---
Portable Chest, Single View May 17, 2016, 6:28 a.m. Indication: Follow-up atelectasis and effusion. Comparison: Portable chest dated May 16, 2016 and May 14, 2016. Findings: The [place] catheter has been removed. The right IJ central venous line and two drains ov erlying the right side of the heart are unchanged. No pneumothorax. Cardiomegaly, asymmetric elevatio n of left hemidiaphragm, left basilar atelectasis and trace left pleural effusion are unchanged. The right lung remains clear. Suture material overlying the left midlung, prosthetic heart valves, and murray rgical clips are all unchanged. Impression: 1. Support devices remain in good position. 2. Persistent left basilar atelectasis and small left pleural effusion. 3. Cardiomegaly. No failure.
[2016-05-17] MEDS ORDERED: LISINOPRIL 5 MG TAB PO SCH (09:00)
--- NOTE | 2016-05-17 09:33 | SOAPPROG ---
SOAP Progress Note Assessment/Plan: Assessment: POD#2: AVR #21 Magna bioprosthesis, MVR #25 Magna bioprosthesis, left femoral artery/vein cannulation with primary repair Sx severe AI/MR - s/p tissue AVR/MVR. Peripheral CPB d/t previous surg/expected adhesions/right atrial tear upon chest entry. Hemodynamically stable early postop course. Need for Cardene and Apacing resolved. Antithrombotic prophylaxis with Coumadin x 3 mo. Target INR 2-2.5. Initiation once coagulopathy resolved and neuro status normalized. Chronic combined CHF, class III - Preop LVEF 35%, improving to 45% after surg. Autodiuresing modest volume overload with stable renal fx. Intro of heart failure regimen in staggered fashion as tolerated. Stable CAD - Hx remote apical NC w well collateralized PATROL OFFICER LAD. Secondary prevention with baby ASA, BB as tolerated (Coreg previously d/cd for generalized weakness), and statin prior to discharge. Acute expected blood loss anemia with thrombocytopenia and mild coagulopathy - Downward drifting platelet count and H/H without evidence of active bleeding. Precautionary HIT Ab sent. NSAID stopped. GI prophylaxis w PPI. PRBC prn. Postoperative left-sided fasciculations/tremor/confusion - Transient. Neuro consulted. Multifactorial etiology, incl TIA, metabolic encephalopathy and/or ETOH/SSRI withdrawal suspected. Supportive therapy for now. Head imaging prn lingering sx. Care with statin and AC. Hx Depression/Anxiety - Chronic meds resumed. Plan: Raz H/H. Transfuse at least 1u PRBC. Stop Toradol. Trial Ultram. Transfer to PCU later today. Consider statin and coumadin tomorrow. 05/17/16 09:31 Subjective: Feels more coherent and less shaky than yest. Hungry, enjoying a substantial breakfast. Satisfactory analgesia. Did feel a little dizzy and wobbily during morning walk. Objective: Vital Signs Temp Pulse Resp BP Pulse Ox 36.7 C 74 12 115/63 100 05/17/16 08:00 05/17/16 08:00 05/17/16 08:00 05/17/16 08:00 05/17/16 08:00 Laboratory Results 05/17/16 05:20 05/17/16 05:20 05/16/16 05/17/16 05/18/16 05:59 05:59 05:59 Intake Total 976 1850 Output Total 2602 2054 Balance -1629 -205 PT 17.3 SEC (12.0-15.0) H 05/17/16 05:20 INR 1.42 (0.83-1.16) H 05/17/16 05:20 HR, rhythm, BP stable. Minimal suppl O2 req. Adequate I/Os. Overall +2 kg by wt. CTOP thin and quantity dissipating. CXR-> bibasilar atelectasis with small left pleural eff INR remains sl elev. Downward drift in H/H and plt count. HIT pending. Physical Exam - Physical Exam General Appearance: alert, no apparent distress Respiratory: lungs clear Cardiac/Chest: regular rate, rhythm, other (Sternum grossly stable. Sternotomy CDI. Blakes x 2 to bulb suction, thin serosang drainage.) Abdomen: normal bowel sounds, non-tender, soft Skin: warm/dry Extremities: other (no visible edema) ICD10 Worksheet Patient Problems: Problems Problem Status Diagnosed S/P aortic valve replacement with bioprosthetic valve Acute S/P mitral valve replacement with bioprosthetic valve Acute Aortic stenosis with mitral and aortic insufficiency Chronic Chronic combined systolic and diastolic CHF, NYHA class 2 Chronic Chronically elevated hemidiaphragm Chronic Nonischemic cardiomyopathy Chronic CAD in [place] artery Chronic Patent foramen ovale Chronic
[2016-05-17 10:28] LABS: HEMATOCRIT 23.6 % (40.0-51.0); HEMOGLOBIN 7.7 g/dL (13.7-17.5)
[2016-05-17] MEDS: SENNOSIDES/DOCUSATE SODIUM TAB PO SCH ×2 (10:30→23:05)
[2016-05-17] MEDS: ASCORBIC ACID 500 MG TAB PO SCH (10:30)
[2016-05-17] MEDS: THIAMINE HCL 100 MG TAB PO SCH (10:30)
[2016-05-17] MEDS: MULTIVITAMINS 1 EACH TAB PO SCH (10:31)
[2016-05-17] MEDS: PANTOPRAZOLE SODIUM 40 MG TAB PO SCH (10:31)
[2016-05-17] MEDS: FOLIC ACID 1 MG TAB PO SCH (10:31)
[2016-05-17] MEDS: VENLAFAXINE XR 150 MG CAP PO SCH (10:31)
[2016-05-17] MEDS: MUPIROCIN 2% 22 GM OINT NS SCH (10:37)
[2016-05-17] MEDS: GLUCOSAMINE/CHONDROITIN CAP PO SCH (10:37)
[2016-05-17] MEDS ORDERED: FUROSEMIDE 20 MG/2 ML VIAL IVP ONE (11:00)
[2016-05-17] MEDS ORDERED: BEER 1 EACH EA PO PRN (12:30)
--- NOTE | 2016-05-17 13:59 | PDINTPN ---
Mold Making Supervisor Progress Note Assessment/Plan: Assessment/plan: 61 M with remote PMH of NHL treated with mediastinal tumor resection and XRT who developed valvular heart disease and underwent MVR/AVR 1. He had an atrial tear on opening, but that was repaired and he extubated in the ICU per protocol. On POD #2 he developed confusion and tremor (L>R) but that reolved with re-introduction of his SSRI and daily beer at lunchtime. * s/p MVR and AVR 1 and tolerated well. BP stable, no bleeding, chest tube sites clean and dry. EF 20% * Anemia/thrombocytopenia. HIT Ab sent, but my personal clinical suspicion is low in this setting. * Tremor with confusion. Resolved as described above. * Respiratory failure with hypoxia- stable postop and extubated without difficulty. * KAMAR- will encourage patient to get his CPAP device to bedside. * DM- controlled on current regimen 05/17/16 13:58 05/17/16 13:59 Objective: Vital Signs Temp Pulse Resp BP Pulse Ox 37 C 82 23 H 125/64 H 100 05/17/16 10:00 05/17/16 10:00 05/17/16 10:00 05/17/16 10:00 05/17/16 10:00 Laboratory Results 05/17/16 10:10 05/17/16 05:20 05/16/16 05/17/16 05/18/16 05:59 05:59 05:59 Intake Total 976 1850 Output Total 2605 2055 Balance -1629 -205 PT 17.3 SEC (12.0-15.0) H 05/17/16 05:20 INR 1.42 (0.83-1.16) H 05/17/16 05:20 Physical Exam - Physical Exam General Appearance: alert, no apparent distress EENT: PERRL/EOMI, pharynx normal Neck: full range of motion, supple Respiratory: lungs clear, normal breath sounds, No respiratory distress, No rales, No rhonchi Cardiac/Chest: normal peripheral pulses, regular rate, rhythm, other (incisions clean and dry. Chest tubes removed), No edema Abdomen: normal bowel sounds, non-tender, soft Skin: normal color, warm/dry, No rash Lymphatic: no adenopathy Extremities: normal range of motion, non-tender, No pedal edema Neuro/Psych: alert, normal mood/affect, oriented x 3 ICD10 Worksheet Patient Problems: Problems Problem Status Diagnosed S/P aortic valve replacement with bioprosthetic valve Acute S/P mitral valve replacement with bioprosthetic valve Acute Aortic stenosis with mitral and aortic insufficiency Chronic Chronic combined systolic and diastolic CHF, NYHA class 2 Chronic Chronically elevated hemidiaphragm Chronic Nonischemic cardiomyopathy Chronic CAD in [place] artery Chronic Patent foramen ovale Chronic
[2016-05-17] MEDS: traMADol 50 MG TAB PO PRN ×2 (16:18→22:52)
[2016-05-17] MEDS: BEER 1 EACH EA PO SCH ×2 (16:18→16:20)
[2016-05-17] MEDS: CHLORHEXIDINE GLUCONATE 15 ML UDL PO SCH (16:18)
[2016-05-17] MEDS: ASPIRIN 81 MG CHEWABLE TAB PO SCH (16:19)
[2016-05-17 18:22] LABS: HEMATOCRIT 25.4 % (40.0-51.0); HEMOGLOBIN 8.5 g/dL (13.7-17.5)
[2016-05-17] MEDS: METOPROLOL TARTRATE 25 MG TAB PO SCH ×2 (22:25→23:22)
[2016-05-18 06:11] LABS: INR 1.2 (0.83-1.16); PROTIME(PATIENT) 15.2 SEC (12.0-15.0)
[2016-05-18 06:16] LABS: ALANINE AMINOTRANSFERASE 29 IU/L (21-72); ALBUMIN 2.5 g/dL (3.5-5.0); ALKALINE PHOSPHATASE 50 IU/L (38-126); ANION GAP 2 mEq/L (8-16); ASPARTATE AMINOTRANSFERASE 40 IU/L (17-59); BILIRUBIN,TOTAL 0.4 mg/dL (0.1-1.4); CALCIUM 7.6 mg/dL (8.5-10.4); CARBON DIOXIDE 33 mEq/l (22-31); CHLORIDE 105 mEq/L (97-110); CREATININE 0.9 mg/dL (0.7-1.3); GLOMERULAR FILTRATION RATE > 60; GLUCOSE 102 mg/dL (70-100); POTASSIUM 4.2 mEq/L (3.5-5.2); SODIUM 140 mEq/L (134-144); TOTAL PROTEIN 4.7 g/dL (6.3-8.2)
[2016-05-18 06:21] LABS: % IMMATURE GRANULYOCYTES 1.1 % (0.0-1.1); ABSOLUTE IMMATURE GRANULOCYTES 0.09 10^3/uL (0.00-0.10); ADD DIFF? NO; ADD MORPH? NO; ADD SCAN? NO; ATYPICAL LYMPHOCYTE FLAG 0 (0-99); FRAGMENT RBC FLAG 0 (0-99); HEMATOCRIT 24.5 % (40.0-51.0); HEMOGLOBIN 8.4 g/dL (13.7-17.5); LEFT SHIFT FLG 20 (0-99); LIPEMIA HEMOLYSIS FLAG 90 (0-99); MEAN CELL HEMOGLOBIN 32.2 pg (27.9-34.1); MEAN CELL HEMOGLOBIN CONCENTR. 34.3 g/dL (32.4-36.7); MEAN CELL VOLUME 93.9 fL (81.5-99.8); MEAN PLATELET VOLUME 11.5 fL (8.7-11.7); PLATELET CLUMPS FLAG 0 (0-99); PLATELET COUNT 58 10^3/uL (150-400); RED BLOOD CELL COUNT 2.61 10^6/uL (4.40-6.38); RED CELL DISTRIBUTION WIDTH 15.9 % (11.5-15.2)
[2016-05-18] MEDS ORDERED: OMEGA-3 FATTY ACIDS 1,000 MG CAP PO SCH (09:00)
--- NOTE | 2016-05-18 09:09 | SOAPPROG ---
SOAP Progress Note Assessment/Plan: Assessment: POD#3 AVR #21 Magna bioprosthesis, MVR #25 Magna bioprosthesis, left femoral artery/vein cannulation with primary repair Sx severe AI/MR - s/p tissue AVR/MVR. Peripheral CPB d/t previous surg/expected adhesions/right atrial tear upon chest entry. Hemodynamically stable early postop course. Need for Cardene and Apacing resolved. Antithrombotic prophylaxis with Coumadin x 3 mo. Target INR 2-2.5. Initiation once coagulopathy resolved and neuro status normalized. Chronic combined CHF, class III - Preop LVEF 35%, improving to 45% after surg. Autodiuresing modest volume overload with stable renal fx. Intro of heart failure regimen in staggered fashion as tolerated. Stable CAD - Hx remote apical MS w well collateralized [employer]OR [employer] LAD. Secondary prevention with baby ASA, BB as tolerated (Coreg previously d/cd for generalized weakness), and hypolipidemics prior to discharge. Acute expected blood loss anemia with thrombocytopenia and mild coagulopathy - Stable s/p 1u PRBC. Precautionary HIT Ab sent. NSAID stopped. GI prophylaxis w PPI. Care with AC. Postoperative left-sided fasciculations/tremor/confusion - Transient. Neuro consulted. Multifactorial etiology, incl TIA, metabolic encephalopathy and/or ETOH/SSRI withdrawal suspected. Supportive therapy for now. Head imaging prn lingering sx. Care with AC. Hx Depression/Anxiety - Chronic meds resumed. KAMAR - ASV machine in room. Plan: Chest tubes and TCPWs removed. Cont Metoprolol 12.5 mg BID w conservative hold parameters. Start Coumadin. 2.5 mg today. Follow platelets. Hold fish oil. Inc activity. Wean O2. Baseline postop echo tomorrow. Dispo - Anticipate rehab in 2 days. 05/18/16 09:06 Subjective: Doing ok. Improving stamina but still feels tired and dependent on assistance. Lives alone. 14 stairs to contend with and would just as soon go to rehab until a bit stronger. Objective: Vital Signs Temp Pulse Resp BP Pulse Ox 36.4 C 74 18 121/58 H 97 05/18/16 09:00 05/18/16 09:00 05/18/16 09:00 05/18/16 09:00 05/18/16 09:00 Laboratory Results 05/18/16 05:30 05/18/16 05:30 05/17/16 05/18/16 05/19/16 05:59 05:59 05:59 Intake Total 1850 1470 Output Total 6 1495 Balance -205 -25 PT 15.2 SEC (12.0-15.0) H 05/18/16 05:30 INR 1.20 (0.83-1.16) H 05/18/16 05:30 Cardioresp status stable. Sufficient BP for low dose metoprolol. 1st degree AVB , no isael. Balanced I/Os. Urinary retention seemingly resolved. CTOP below removal criteria. LFTs WNL, INR cont to fall. H/H stable. - Pending Discharge Pending Discharge Within 48 Hours: Yes Pending Discharge Date: 05/20/16 Pending Discharge Time: 11:00 Physical Exam - Physical Exam General Appearance: alert, no apparent distress Respiratory: lungs clear, other (Blakes x 2 to bulb suction, thin serosang drainage. Both tubes removed w/out incident.) Cardiac/Chest: regular rate, rhythm, other (Sternum grossly stable. Sternotomy, left groin incision CDI. A&V wires removed without difficulty.) Abdomen: non-tender, soft Skin: warm/dry Extremities: other (no visible edema) ICD10 Worksheet Patient Problems: Problems Problem Status Diagnosed S/P aortic valve replacement with bioprosthetic valve Acute S/P mitral valve replacement with bioprosthetic valve Acute Aortic stenosis with mitral and aortic insufficiency Chronic Chronic combined systolic and diastolic CHF, NYHA class 2 Chronic Chronically elevated hemidiaphragm Chronic Nonischemic cardiomyopathy Chronic CAD in [place] artery Chronic Patent foramen ovale Chronic
[2016-05-18] MEDS: SENNOSIDES/DOCUSATE SODIUM TAB PO SCH ×2 (09:40→21:03)
[2016-05-18] MEDS: GLUCOSAMINE/CHONDROITIN CAP PO SCH (09:41)
[2016-05-18] MEDS: ASCORBIC ACID 500 MG TAB PO SCH (09:42)
[2016-05-18] MEDS: MULTIVITAMINS 1 EACH TAB PO SCH (09:42)
[2016-05-18] MEDS: METOPROLOL TARTRATE 25 MG TAB PO SCH ×2 (09:42→21:03)
[2016-05-18] MEDS: THIAMINE HCL 100 MG TAB PO SCH (09:42)
[2016-05-18] MEDS: PANTOPRAZOLE SODIUM 40 MG TAB PO SCH (09:42)
[2016-05-18] MEDS: VENLAFAXINE XR 150 MG CAP PO SCH (09:42)
[2016-05-18] MEDS: FOLIC ACID 1 MG TAB PO SCH (09:42)
[2016-05-18] MEDS: ASPIRIN 81 MG CHEWABLE TAB PO SCH (09:42)
[2016-05-18 15:40] LABS: HEPARIN INDUCED ANTIBODY Negative (Negative); REACTIVITY 7 % (<20)
[2016-05-18] MEDS ORDERED: WARFARIN SODIUM 2.5 MG TAB PO ONE (16:00)
[2016-05-18] MEDS: SPIRONOLACTONE 25 MG TAB PO SCH (17:51)
[2016-05-19 06:06] LABS: HEMATOCRIT 23.5 % (40.0-51.0); HEMOGLOBIN 8.1 g/dL (13.7-17.5); MEAN CELL HEMOGLOBIN 32.3 pg (27.9-34.1); MEAN CELL HEMOGLOBIN CONCENTR. 34.5 g/dL (32.4-36.7); MEAN CELL VOLUME 93.6 fL (81.5-99.8); RED BLOOD CELL COUNT 2.51 10^6/uL (4.40-6.38); RED CELL DISTRIBUTION WIDTH 14.9 % (11.5-15.2)
[2016-05-19 06:20] LABS: INR 1.24 (0.83-1.16); PROTIME(PATIENT) 15.6 SEC (12.0-15.0)
--- NOTE | 2016-05-19 07:39 | SOAPPROG ---
SOAP Progress Note Assessment/Plan: Assessment: POD#4 AVR #21 Magna bioprosthesis, MVR #25 Magna bioprosthesis, left femoral artery/vein cannulation with primary repair Sx severe AI/MR - s/p tissue AVR/MVR. Peripheral CPB d/t previous surg/expected adhesions/right atrial tear upon chest entry. Hemodynamically stable early postop course. Need for Cardene and Apacing resolved. Tubes and wires out. Antithrombotic prophylaxis with Coumadin x 3 mo. Target INR 2-2.5. Chronic combined CHF, class III - Preop LVEF 35%, improving to 45% after surg. Autodiuresing modest volume overload with stable renal fx. Intro of heart failure regimen in staggered fashion as tolerated. Stable CAD - Hx remote apical NM w well collateralized CONCRETE ROD BUSTER LAD. Secondary prevention with baby ASA, BB as tolerated (Coreg previously d/cd for generalized weakness), and hypolipidemics prior to discharge. Acute expected blood loss anemia with thrombocytopenia and mild coagulopathy - Recurrent downward drift s/p 1u PRBC. No evidence active bleeding. HIT Ab neg. + GI prophylaxis w PPI. Will ck CT abd/pelvis ? left iliofem injury. Transfuse prn. Postoperative left-sided fasciculations/tremor/confusion - Transient and seemingly resolved. Multifactorial etiology, incl metabolic encephalopathy and/ or ETOH/SSRI withdrawal suspected. Hx Depression/Anxiety - Chronic meds resumed. KAMAR - ASV machine in room. Plan: Raz H/H. Tx for HCT < 23. CT abd/pelvis w/o contrast. Cont Metoprolol 12.5 mg BID w conservative hold parameters. Coumadin 2.[address] unremarkable. Baseline postop echo w scrutiny for pericardial effusion. Dispo - Tomorrow still feasible. Home vs rehab. 05/19/16 07:32 Subjective: Doing ok. A bit irritated by poor sleep. Still weak and tired but having second thoughts about rehab, now leaning to "going home tomorrow". +BM, brown and of normal consistency. Objective: Vital Signs Temp Pulse Resp BP Pulse Ox 36.7 C 78 22 H 109/69 89 L 05/19/16 07:26 05/19/16 07:26 05/19/16 07:26 05/19/16 07:26 05/19/16 07:26 Laboratory Results 05/19/16 05:50 05/18/16 05:30 05/18/16 05/19/16 05/20/16 05:59 05:59 05:59 Intake Total 1470 950 Output Total 1495 525 Balance -25 425 PT 15.6 SEC (12.0-15.0) H 05/19/16 05:50 INR 1.24 (0.83-1.16) H 05/19/16 05:50 Cardioresp status stable. ? need for suppl O2 w excellent sats on 1lpm. Balanced I/Os. Slight drop in H/H. Improved plt count. No sig rise in INR. Physical Exam - Physical Exam General Appearance: alert, no apparent distress Respiratory: lungs clear Cardiac/Chest: regular rate, rhythm, other (Sternotomy and Left groin incision CDI) Abdomen: non-tender, soft Skin: warm/dry Extremities: other (no visible edema) ICD10 Worksheet Patient Problems: Problems Problem Status Diagnosed S/P aortic valve replacement with bioprosthetic valve Acute S/P mitral valve replacement with bioprosthetic valve Acute Aortic stenosis with mitral and aortic insufficiency Chronic Chronic combined systolic and diastolic CHF, NYHA class 2 Chronic Chronically elevated hemidiaphragm Chronic Nonischemic cardiomyopathy Chronic CAD in [place] artery Chronic Patent foramen ovale Chronic
[2016-05-19] MEDS: ASPIRIN 81 MG CHEWABLE TAB PO SCH (09:19)
[2016-05-19] MEDS: FOLIC ACID 1 MG TAB PO SCH (09:20)
[2016-05-19] MEDS: METOPROLOL TARTRATE 25 MG TAB PO SCH ×2 (09:20→20:01)
[2016-05-19] MEDS: GLUCOSAMINE/CHONDROITIN CAP PO SCH (09:20)
[2016-05-19] MEDS: SPIRONOLACTONE 25 MG TAB PO SCH (09:20)
[2016-05-19] MEDS: THIAMINE HCL 100 MG TAB PO SCH (09:20)
[2016-05-19] MEDS: ASCORBIC ACID 500 MG TAB PO SCH (09:20)
[2016-05-19] MEDS: VENLAFAXINE XR 150 MG CAP PO SCH (09:20)
[2016-05-19] MEDS: MULTIVITAMINS 1 EACH TAB PO SCH (09:21)
[2016-05-19] MEDS: PANTOPRAZOLE SODIUM 40 MG TAB PO SCH (09:21)
[2016-05-19] MEDS: SENNOSIDES/DOCUSATE SODIUM TAB PO SCH ×2 (09:23→20:03)
[2016-05-19 10:08] LABS: HEMATOCRIT 26.6 % (40.0-51.0); HEMOGLOBIN 9.1 g/dL (13.7-17.5)
--- NOTE | 2016-05-19 12:44 | SOAPPROG ---
SOAP Progress Note Assessment/Plan: Assessment: CHF progress note 61 y/o man with remote NHL in 1989 treated with thymectomy, XRT to chest, partial pericardial sac resection, partial left upper lobe resection and Adriamycin based chemo in remission. Started having CHF symptoms in 01/03. Tried on low dose Coreg and Lisinopril and felt like a zombie. Had CHF with LVEF 45%, significant AV and MV disease and 100% occluded LAD. Underwent sternotomy with BioAVR and BioMVR now POD#4. He feels his mental status is clearing but not at baseline. Still has shortness of breath but ambulates with PT well. On exam appears euvolemic. REC: 1)start Lisinopril 5mg PO qhs if SBP > 105. 2)home on Toprol XL 25mg PO qam. 3)doesn't look like he needs daily, scheduled lasix for now. 4)f/u CHF-[facility] with ecg 7-10 days after discharge. Thanks. 05/19/16 12:41 Subjective: Now out on telemetry floor. Feels his thinking is starting to clear. Has sense of shortness of breath but ambulated 50-100ft in hallway with PT without sx. Denies near syncope, CP or PND. Objective: Vital Signs Temp Pulse Resp BP Pulse Ox 36.5 C 82 24 H 132/75 H 91 L 05/19/16 11:02 05/19/16 11:02 05/19/16 11:02 05/19/16 11:02 05/19/16 11:02 Laboratory Results 05/19/16 10:00 05/18/16 05:30 05/18/16 05/19/16 05/20/16 05:59 05:59 05:59 Intake Total 1470 950 360 Output Total 1495 525 Balance -25 425 360 PT 15.6 SEC (12.0-15.0) H 05/19/16 05:50 INR 1.24 (0.83-1.16) H 05/19/16 05:50 Physical Exam - Physical Exam General Appearance: No no apparent distress EENT: PERRL/EOMI Neck: full range of motion Respiratory: crackles (rare crackles bilateral that clear with deeper breath.), No wheezing Cardiac/Chest: regular rate, rhythm, systolic murmur, No gallop (2/6 EUGENIA heard. No S3 or rub.) Peripheral Pulses: 2+: carotid (R), carotid (L), femoral (R), femoral (L), dorsalis-pedis (R), dorsalis-pedis (L) Abdomen: non-tender, No organomegaly, No ascites Skin: warm/dry Extremities: No pedal edema Neuro/Psych: alert ICD10 Worksheet Patient Problems: Problems Problem Status Diagnosed Acute blood loss anemia Acute S/P aortic valve replacement with bioprosthetic valve Acute S/P mitral valve replacement with bioprosthetic valve Acute Aortic stenosis with mitral and aortic insufficiency Chronic Chronic combined systolic and diastolic CHF, NYHA class 2 Chronic Chronically elevated hemidiaphragm Chronic Nonischemic cardiomyopathy Chronic CAD in [place] artery Chronic Patent foramen ovale Chronic
[2016-05-19] MEDS ORDERED: WARFARIN SODIUM 5 MG TAB PO ONE (16:00)
[2016-05-19] MEDS: LISINOPRIL 5 MG TAB PO SCH (19:02)
[2016-05-20 05:43] LABS: HEMATOCRIT 25.9 % (40.0-51.0); HEMOGLOBIN 8.8 g/dL (13.7-17.5); MEAN CELL HEMOGLOBIN 31.9 pg (27.9-34.1); MEAN CELL VOLUME 93.8 fL (81.5-99.8); RED BLOOD CELL COUNT 2.76 10^6/uL (4.40-6.38); RED CELL DISTRIBUTION WIDTH 14.6 % (11.5-15.2)
[2016-05-20 05:52] LABS: INR 1.52 (0.83-1.16); PROTIME(PATIENT) 18.3 SEC (12.0-15.0)
--- NOTE | 2016-05-20 08:01 | SOAPPROG ---
SOKAREN Progress Note Assessment/Plan: POD#5: AVR #21 Magna bioprosthesis, MVR with #25 Magna bioprosthesis, left femoral artery/vein cannulation with primary repair Severe AI/MR s/p AVR/MVR with need for femoral cannulation secondary to right atrium tear when entering the chest - Thromboprophylaxis for MVR with Coumadin for 3 months goal 2-3 Left-sided fasciculations/tremor/confusion, resolved -thought to be due to ETOH and anti-depressant withdrawal CAD with chronically occluded LAD and apical ICM - ASA/BB/statin CHF, stage III-IV, systolic and diastolic,EF 35%, - BB/ACEi - Lasix prn ABLA with stable H/H, -HIT - No concerns for bleeding Depression/Anxiety - Re-start PO meds (Wellbutrin/Trazodone) Migraine CLAUDIO - Imitrex prn KAMAR - Continue home device Disposition - Home today without services with enrollment in cardiac rehab QIANA 05/20/16 08:02 Subjective: Feels well. Feels comfortable going home without help. Objective: Vital Signs Temp Pulse Resp BP Pulse Ox 36.5 C 87 18 135/84 H 92 05/20/16 04:00 05/20/16 04:00 05/20/16 04:00 05/20/16 04:00 05/20/16 04:00 Laboratory Results 05/20/16 05:31 05/18/16 05:30 05/19/16 05/20/16 05/21/16 05:59 05:59 05:59 Intake Total 950 780 Output Total 525 550 Balance 425 230 PT 18.3 SEC (12.0-15.0) H 05/20/16 05:31 INR 1.52 (0.83-1.16) H 05/20/16 05:31 Physical Exam - Physical Exam General Appearance: WD/WN, alert, no apparent distress EENT: No scleral icterus (R), No scleral icterus (L) Neck: normal inspection Respiratory: No respiratory distress Cardiac/Chest: regular rate, rhythm Abdomen: non-tender, soft, No distended Skin: normal color, warm/dry Extremities: No pedal edema, No swelling Neuro/Psych: no motor/sensory deficits, alert, normal mood/affect, oriented x 3 ICD10 Worksheet Patient Problems: Problems Problem Status Diagnosed Acute blood loss anemia Acute S/P aortic valve replacement with bioprosthetic valve Acute S/P mitral valve replacement with bioprosthetic valve Acute Aortic stenosis with mitral and aortic insufficiency Chronic Chronic combined systolic and diastolic CHF, NYHA class 2 Chronic Chronically elevated hemidiaphragm Chronic Nonischemic cardiomyopathy Chronic CAD in [place] artery Chronic Patent foramen ovale Chronic
[2016-05-20 08:27] VITALS: RESP 20
[2016-05-20] MEDS ORDERED: METOPROLOL SUCCINATE XR 25 MG TAB PO SCH (09:00)
[2016-05-20] MEDS ORDERED: ATORVASTATIN CALCIUM 20 MG TAB PO SCH (09:00)
[2016-05-20] MEDS: SPIRONOLACTONE 25 MG TAB PO SCH (09:11)
[2016-05-20] MEDS: ASPIRIN 81 MG CHEWABLE TAB PO SCH (09:11)
[2016-05-20] MEDS: MULTIVITAMINS 1 EACH TAB PO SCH (09:11)
[2016-05-20] MEDS: GLUCOSAMINE/CHONDROITIN CAP PO SCH (09:12)
[2016-05-20] MEDS: PANTOPRAZOLE SODIUM 40 MG TAB PO SCH (09:12)
[2016-05-20] MEDS: FOLIC ACID 1 MG TAB PO SCH (09:12)
[2016-05-20] MEDS: VENLAFAXINE XR 150 MG CAP PO SCH (09:13)
[2016-05-20] MEDS: THIAMINE HCL 100 MG TAB PO SCH (09:13)
[2016-05-20] MEDS: ASCORBIC ACID 500 MG TAB PO SCH (09:14)
[2016-05-20] MEDS: LISINOPRIL 5 MG TAB PO SCH ×2 (09:17→10:42)
[2016-05-20] MEDS: SENNOSIDES/DOCUSATE SODIUM TAB PO SCH (09:34)
[2016-05-20 11:47] VITALS: BP 130/73; PULSE 78; TEMP 98.1; O2SAT 95
[2016-05-20] MEDS ORDERED: WARFARIN SODIUM 2.5 MG TAB PO ONE (12:30)
[2016-05-20] MEDS ORDERED: WARFARIN SODIUM 5 MG TAB PO ONE (16:00)
--- NOTE | 2016-05-21 13:54 | ECHO ---
[id number] + + [address] : : [place] [address] : : [phone] + + Adult Echocardiographic Report + + :Name: Gene IBARRAaydin Date: 05/19/2016 07:30 AM : : Hospital Admission Number: [id number] : :: 1955 Gender: Male Height: 70 in : :Age: 61 yrs Race: WH Weight: 183 lb : :Reason For Study: evaluate valves and LVFX : : BSA: 2.0 meters2: :History: S/P #21AVR, #25 MVR CE Magna Bovine prosthesis, : :CABG : + + MMode/2D Measurements & Calculations IVSd: 1.1 cm LVIDd: 5.4 cm FS: 20.2 % LVOT diam: 2.2 cm LVPWd: 1.1 cm LVIDs: 4.3 cm EDV(Teich): 140.5 ml LVOT area: 3.7 cm2 ESV(Teich): 83.1 ml EF(Teich): 40.9 % Normal Measurement Values: + + :LVIDd (3.5-5.7cm) IVSd (0.6-1.1cm) LVPWd (0.6-1.1cm) Aortic Root (2.0-3.7cm)Left Atrium (1.5-4.0cm): :LV Vol(d) (76-115ml) LV Vol(s) (29-48ml) Ejec Fraction (50-65%)PV Flex (0.6- 1.2m/s) TV Flex (0.4-1.0m/s) : :MV E Flex (0.8-1.0m/s)MV A Flex (0.3-1.0m/s)LVOT Flex (0.7-1.2m/s) Asc Ao Flex ( 0.9-1.8m/s) : + + Doppler Measurements & Calculations MV V2 max: MV P1/2t max flex: Ao V2 max: LV V1 mean P.0 cm/sec 193.3 cm/sec 313.7 cm/sec 2.3 mmHg MV max PG: MV P1/2t: 97.9 msec Ao max PG: LV V1 mean: 14.4 mmHg MVA(P1/2t): 2.2 cm2 39.4 mmHg 69.0 cm/sec MV V2 mean: MV dec slope: Ao mean PG: LV V1 VTI: 139.9 cm/sec 22.5 mmHg 18.0 cm MV mean P.2 cm/sec2 Ao V2 mean: 8.4 mmHg 225.6 cm/sec MV V2 VTI: 49.2 cm Ao V2 VTI: 59.1 cm MVA(VTI): 1.3 cm2 YOMI(I,D): 1.1 cm2 SV(LVOT): 66.0 ml PA V2 max: TR max flex: 157.5 cm/sec 285.1 cm/sec PA max P.9 mmHg TR max P.5 mmHg Left Ventricle The left ventricle is normal in size. There is borderline concentric left ventricular hypertrophy. Diastolic Function Indeterminate due to MVR.. Ejection Fraction = 45%. The left ventricular ejection fraction is calculated at 40.9 %. Septal motion is consistent with post-operative state. Right Ventricle The right ventricle is grossly normal size. The right ventricular systolic function is mildly reduced. Atria The left atrium is moderate to severely dilated. The Left Atrial Volume is 50 ml/m2. Right atrial size is normal. Mitral Valve Mean gradient across the valve 6-8mmHg. There is no mitral regurgitation noted. There is a bioprosthetic mitral valve. Tricuspid Valve The tricuspid valve is normal in structure and function. There is mild tricuspid regurgitation. Right ventricular systolic pressure is 32mmHg. There is Doppler evidence for mild pulmonary hypertension. Aortic Valve Mean gradient across the valve 23mmHg, peak PG 39mmHg and max velocity 3.1m/s. There is a holosystolic jet noted across either the interventricular septum or the aortic root; could be eccentric perivalvular leak or partial VSD. There is a bioprosthetic aortic valve. Pulmonic Valve The pulmonic valve is not well visualized. Trace pulmonic valvular regurgitation. Great Vessels The aortic root is normal size. Pericardium/Pleural There is no pericardial effusion. There is a moderate pleural effusion. Conclusion A two-dimensional transthoracic echocardiogram with M-mode and Doppler was performed. (1) Left ventricular systolic ejection fraction was moderately reduced (40- 45%) - septal wall motion consistent with post surgical state, but global hypokinesis is also noted (2) Borderline concentric left ventricular hypertrophy (3) Diastolic dysfunction noted (4) Normal right ventricular size with mild reduction in systolic function (5) Moderate to severe left atrial dilation wtih normal right atrial dimensions (6) Bioprosthetic mitral valve without appreciable regurgitation noted - mean gradient was 6-8 mm Hg (7) Bioprosthetic aortic valve without appreciable aortic insufficiency noted - there was a holodiastolic jet noted across the interventricular septum noted - mean gradient was 23 mm Hg (8) Mild tricuspid regurgitation - RVSP was estimated to be 32 mm Hg (9) Poor visualization of the pulmonic valve with physiologic insufficiency by doppler (10) Moderate to large pleural effusion (11) Surgical intervention to both aortic and mitral valve has occurred since the last echo. (12) Would consider JULIANO for better assessment of the possible VSD as well as some question about thrombus to the left atrium (versus echo artifact from the new bioprosthetic valve) Final Reading Physician: Allyson Desai signed on 05/21/2016 01:52 PM Ordering Physician: Blossom Enamorado Performed By: Stefany Gautam
--- NOTE | 2016-05-21 17:37 | PDDCSUM ---
Discharge Summary Discharge Summary: ADMISSION DATE: 05/15/16 DISCHARGE DATE: 05/20/16 ADMISSION DX: 1. Severe aortic insufficiency 2. Severe mitral regurgitation 3. 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 Coronary atherosclerotic disease 5. Ischemic and dilated cardiomyopathy DISCHARGE DX: 1. Severe aortic insufficiency 2. Severe mitral regurgitation 3. 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 Coronary atherosclerotic disease 5. Ischemic and dilated cardiomyopathy SECONDARY DX: 1. Depression 2. Anxiety 3. Obstructive sleep apnea 4. Migraine headaches 5. Non-Hogkins lymphoma with removal of thymus, partial resection of left lung and pericardium via left thoracotomy 6. Alcohol abuse CONSULTS: 1. Neurology: Da Brown PROCEDURES: 05/15/16, Jan Malloy: 1. Mitral valve replacmenet with #25 Magna bioprosthesis 2. Aortic root replacement with #21 Magna bioprosthesis 3. Left common femoral artery and vein cannulation with primary repair HPI: Pt with known severe AI and MR admitted electively for AVR and MVR. HOSPITAL COURSE: The patient underwent the procedures above and was transferred to the ICU in stable condition. On POD #1 the patient experienced left-sided tremors and fasciculations as well as altered mental status. The patient was known to abuse alcohol and suffer from depression and anxiety. His home medications were restarted and beer was given with meals and subsequently his neurologic symptoms improved. Neurology had evaluated the patient and signed-off on the same day having little to input. CONDITION - Good DISPOSITION: - Home, self-care ACTIVITY: Pt was instructed on sternal precautions, activity limitations, and which problems to call [facility] with. Please see Discharge Plan in chart for specifics. D/C MEDICATIONS: 1. Ascorbic Acid [Vitamin C 500 mg (*)] 500 mg PO DAILY 2. Glucosamine HCl/Chondr Rudd A Na [Glucosamine-Chondroitin Tablet] 3 tab PO DAILY 3. Multivitamins [Multivitamin (*)] 1 each PO DAILY 4. Sumatriptan Succinate [Imitrex] 100 mg PO PRN 5. Venlafaxine Xr [Effexor Xr] 150 mg PO DAILY 6. traZODone [traZODone 150MG (*)] 150 mg PO HS 7. [place]-3 Fatty Acids [Fish Oil 1000 mg (*)] 1,000 mg PO DAILY 8. Herbals/Supplements -Info Only 1 ea PO DAILY 9. Acetaminophen [Tylenol 325mg (*)] 325 - 650 mg PO Q4HRS PRN 10. Atorvastatin Calcium [Lipitor 20 mg (*)] 20 mg PO DAILY #30 tab 11. Lisinopril [Zestril 5 mg (*)] 5 mg PO DAILY #30 tab 12. Metoprolol Succinate Xr [Toprol Xl 25 mg (*)] 25 mg PO DAILY #30 tab 13. Spironolactone [Aldactone 25 MG (*)] 25 mg PO DAILY #30 tab 14. Warfarin Sodium [Coumadin 5MG (*)] 5 mg PO ONCE@16 #30 - INR goal 2-3 for 3 months PENDING STUDIES/LABS: 1. 05/21/16: INR at Coumadin clinic 2. 05/27/16: CXR F/U APPOINTMENTS: - Dr. Jan Malloy - 05/27/16, 10:30 AM - Dr. Ishmael Hinds- To be arranged at surgical follow-up
--- NOTE | 2016-05-23 14:32 | PQFORM ---
PHYSICIAN QUERY FORM Needs Your Response This query form is being sent to you to assure this patient record is coded properly. Please respond to the question below: RECOVERY SPECIALIST QUESTION: Dear Dr. Malloy, It is documented in the SOAP notes dated 05/17-05/20 as well as the Roofing Machine Tender progress note dated 05/17 that this patient has the diagnosis of ' Acute blood loss anemia w/ thrombocytopenia' treated with PRBC transfusion. After study, should the diagnosis of 'Acute blood loss anemia' be included in the Discharge summary? _x___ Yes ____ No ____ Other more appropriate diagnosis ____ Unable to determine Thank you [facility]/Coding Dept [phone] INSTRUCTIONS FOR RESPONSE: Answer question by clicking on the "Edit Document" button. Move cursor to area below the stars. When complete, hit "Save." Click on the "Sign" button, then click "Sign" again. Type in your PIN and hit "Enter." MTDD
--- NOTE | 2016-05-23 14:46 | PQFORM ---
PHYSICIAN QUERY FORM Needs Your Response This query form is being sent to you to assure this patient record is coded properly. Please respond to the question below: CONTRACT ADMINISTRATIVE ASSISTANT QUESTION: Dear Dr. Cherry It is documented in your Talent Acquisition Program Manager progress notes dated 05/16-05/17 that this patient had the diagnosis of 'Respiratory Failure w/ hypoxia'. Also documented in your Consult report dated 05/15 the patient was documented with ' Respiratory failure.' After study, can the Respiratory failure' be further specified? Acute respiratory failure w/ hypoxia Chronic respiratory failure w/hypoxia Acute on Chronic respiratory failure, unspecified Other more appropriate diagnosis Unable to determine Thank you [facility]/Coding Dept [phone] INSTRUCTIONS FOR RESPONSE: Answer question by clicking on the "Edit Document" button. Move cursor to area below the stars. When complete, hit "Save." Click on the "Sign" button, then click "Sign" again. Type in your PIN and hit "Enter." MTDD
--- NOTE | 2016-06-05 17:18 | GPROG ---
[f rep st] PROGRESS NOTE POST ANESTHESIA NOTE The patient underwent mitral valve and aortic valve replacement on May 15, 2016, and I visited h im in the ICU on May 16, 2016, about 2:30 in the afternoon. At that point, the patient was awak e and extubated, was still requiring small doses of pressors for his pressure secondary to his eject ion fraction being approximately 20%. He was showing some signs of tremor with confusion in the mor abdelrahman, but that was resolving in the afternoon and was suspected to be potentially alcohol withdrawal . Other than that, he was doing very well, having no other complaints. No significant nausea, vomi ting, pain, or anesthetic related issues. /[id number]/MODL
== END 2016-05-20 14:05 | disposition home or self-care (01) | DRG 220 ==
LOC: F3N 06:51 → F2N 12:01 → F2W 05-17 15:51
PROVIDERS: ADMIT Thoracic Surgery (Cardiothoracic Vascular Surgery); ATTEND Thoracic Surgery (Cardiothoracic Vascular Surgery)
DX: I08.0 Rheumatic disorders of both mitral and aortic valves (principal); I50.42 Chronic combined systolic (congestive) and diastolic (congestive) heart failure; D62 Acute posthemorrhagic anemia; I25.10 Atherosclerotic heart disease of native coronary artery without angina pectoris; I25.5 Ischemic cardiomyopathy; F41.8 Other specified anxiety disorders; G47.33 Obstructive sleep apnea (adult) (pediatric); G43.909 Migraine, unspecified, not intractable, without status migrainosus; Z85.72 Personal history of non-Hodgkin lymphomas; F10.10 Alcohol abuse, uncomplicated; G44.009 Cluster headache syndrome, unspecified, not intractable; N40.0 Benign prostatic hyperplasia without lower urinary tract symptoms; R25.3 Fasciculation; R25.1 Tremor, unspecified; R41.0 Disorientation, unspecified; D69.6 Thrombocytopenia, unspecified; Z96.643 Presence of artificial hip joint, bilateral
CPT/HCPCS: 82947-QW; 86022-90; 97116-GP; 97162-GP; 97166-GO; 97530-GO; 97530-GP; 97535-GO; C1768; J0153; J0171; J0282; J0690; J1100; J1265; J1644; J1815; J1885; J2001; J2150; J2250; J2260; J2370; J2405; J2440; J2704; J2720; J2930; J3010; J7060; P9016; P9041

== ENCOUNTER → 2016-05-27 | Outpatient (CLI) | payer MEDICAID ==
--- NOTE | 2016-05-27 11:39 | DX ---
PA and Lateral Chest - May 27, 2016 Indication: Follow up effusion. Comparison: Portable chest dated May 17, 2016 Findings: Asymmetric elevation of the left hemidiaphragm, suture material at the left mid lung, surgi isrrael clips in the left hilum, midline sternal wire, and 2 prosthetic heart valves are unchanged. Small left pleural effusion and compressive atelectasis have developed in the left mid lung since one week prior. New trace right pleural effusion blunting the right costophrenic angle. Lungs are otherwise clear. He art size is obscured. Impression: 1. Increased small left pleural effusion superimposed on chronically elevated left hemidiaphragm. 2. New trace right pleural effusion. 3. No failure.
== END ==
LOC: FIMAGING 10:30
PROVIDERS: ATTEND Physician Assistant Surgical
DX: J90 Pleural effusion, not elsewhere classified (principal); J98.11 Atelectasis

== ENCOUNTER → 2016-05-27 | Outpatient (CLI) | payer MEDICAID ==
--- NOTE | 2016-05-27 14:48 | CT ---
CT Chest Unenhanced History: Evaluate pleural effusion. Status post aortic and mitral valve replacement. History of non-H odgkin's lymphoma. Comparison: PA and lateral chest May 27, 2016. Technique: Axial unenhanced images were obtained through the chest. Coronal MIPs were performed. Dose reduction techniques were utilized. Findings: Subsegmental atelectasis is noted in the anterior right upper lobe. There is scattered add itional atelectasis. There is a small right pleural effusion with a small loculated left pleural effu marce, with fluid in the major fissure. Marked elevation of the left hemidiaphragm is noted. Moderate cardiomegaly is present. Artificial aortic and mitral valves are present. The aorta is normal caliber with mild atherosclerosis. There is expected postsurgical change in the mediastinum and sternum with no significant hematoma or pericardial effusion. There is a 1.3 x 1.3 cm right thoracic inlet node ( series 5 image 10). Sternotomy wire is intact. Mild degenerative change is present in the spine. Numerous hepatic cysts are present with additional hypodensities in the liver too small to characteri ze. Mild stool is present in the colon. Impression: 1. Small bilateral pleural effusions, loculated on the left. 2. Elevation of the left hemidiaphragm. 3. Enlarged right thoracic inlet lymph node. Recommend comparison with previous imaging given the pat ient's history of lymphoma. 4. Additional findings as above. Findings discussed with Diego Trimble's PA, today at 1428 hours.
== END ==
LOC: FIMAGING 13:14
PROVIDERS: ATTEND Thoracic Surgery (Cardiothoracic Vascular Surgery)
DX: Z09 Encounter for follow-up examination after completed treatment for conditions other than malignant neoplasm (principal); Z95.2 Presence of prosthetic heart valve; J90 Pleural effusion, not elsewhere classified; R59.0 Localized enlarged lymph nodes; Z85.72 Personal history of non-Hodgkin lymphomas

== ENCOUNTER → 2018-02-10 | Outpatient (CLI) | payer MEDICAID, OTHER | LOC: BHLMT 13:15 | PROVIDERS: ATTEND Internal Medicine Interventional Cardiology | DX: I48.91 Unspecified atrial fibrillation (principal); I35.1 Nonrheumatic aortic (valve) insufficiency; I35.0 Nonrheumatic aortic (valve) stenosis | CPT/HCPCS: 93306-PO ==